=== PATIENT | male | born 1985 | race Caucasian/White ===

== ENCOUNTER 2018-06-30 08:43 | Emergency (ER) | payer SELFPAY | END 2018-06-30 09:43 | disposition home or self-care (01) | LOC: MADERS 08:43 | DX: M25.531 Pain in right wrist (principal); I10 Essential (primary) hypertension; Z87.891 Personal history of nicotine dependence | CPT/HCPCS: 99281 ==

== ENCOUNTER 2020-12-08 13:19 | Emergency (ER) | payer SELFPAY ==
[~2020-12-08 13:19] MED LIST: Sodium Chloride 0.9% 1,000 ML BAG ONE
[2020-12-08 13:58] LABS: Hemoglobin 15.9 g/dL (14.0-18.0); Mean Corpuscular HGB CONC 32.1 g/dL (32.0-36.0); Mean Corpuscular Hemoglobin 28.2 pg (27.0-31.0); Mean Corpuscular Volume 87.9 fL (78.0-98.0); Mean Platelet Volume 7.9 fL (7.4-10.4); Platelet Count 178 thou/uL (130-400); RBC Distribution Width 13.3 % (11.5-14.5); Red Blood Cell (RBC) Count 5.61 mill/uL (4.70-6.10); White Blood Cell (WBC) Count 8.9 thou/uL (4.8-10.8)
[2020-12-08 14:09] LABS: ALT (SGPT) 16 U/L (8-55); AST (SGOT) 25 U/L (5-34); Albumin 3.8 g/dL (3.5-5.0); Alkaline Phosphatase 84 U/L (40-110); Anion Gap 12 mmol/L (10-20); BUN (Urea Nitrogen) 17 mg/dL (8.9-20.6); Bilirubin, Total 1.3 mg/dL (0.2-1.2); CK (CPK) 139 U/L (30-200); Calc. Creatinine Clearance 0 mL/min (70-130); Carbon Dioxide 24 mmol/L (22-29); Chloride 103 mmol/L (98-107); Globulin 3.4 g/dL (2.4-3.5); Glucose 129 mg/dL (70-105); Potassium 3.8 mmol/L (3.5-5.1); Protein, Total 7.2 g/dL (6.0-8.3); Sodium 135 mmol/L (136-145)
[2020-12-08] MEDS ORDERED: Morphine 4 MG/ML VIAL ONE ×2 (14:26→16:18)
[2020-12-08] MEDS ORDERED: Morphine 2 MG/ML VIAL ONE (14:27)
[2020-12-08 14:29] LABS: Band 3 % (5-11); Eosinophils 3 % (0-10); Lymphocytes 8 % (21-51); MDiff Complete? YES; Monocytes 8 % (0-10); Neutrophil 77 % (42-75); Platelet Morphology Comment Appears Adequate; RBC Morphology Normal
[2020-12-08 14:33] LABS: Bilirubin Negative (Negative); Blood, Urine Trace (Negative); Clarity Clear (Clear); Glucose, Urine (Dipstick) Negative (Negative); Ketone, Urine Trace mg/dL (Negative); Leukocyte Negative (Negative); Nitrite Negative (Negative); Protein, Urine (Dipstick) 100 mg/dL (Neg-Trace); Specific Gravity, Urine 1.025 (1.005-1.030)
[2020-12-08 14:54] LABS: RBC/HPF 0-3 HPF (0-3); Squamous Epithelial 0-3 HPF (0-3); WBC/HPF 0-3 HPF (0-3)
[2020-12-08 14:55] LABS: Bacteria/HPF Rare-Few HPF (None Seen)
[2020-12-08] MEDS ORDERED: Ketorolac Tromethamine 30 MG/ML VIAL ONE (15:11)
[2020-12-08] MEDS ORDERED: Acetaminophen 325 MG TAB ONE (16:18)
[2020-12-08 17:06] LABS: SARS-CoV-2 NAA Rapid Test Not Detected (NotDetected)
[2020-12-08] MEDS ORDERED: Sodium Chloride 0.9% 100 ML ONE (19:06)
[2020-12-08] MEDS ORDERED: Sodium Chloride 0.9% 50 ML ONE (19:06)
[2020-12-08] MEDS ORDERED: cefTRIAXone\\ROCEPHIN 2 GM VIAL ONE (19:06)
[2020-12-08] MEDS ORDERED: Metoclopramide HCl 10 MG/2 ML VIAL ONE (19:06)
[2020-12-08] MEDS ORDERED: HYDROmorphone 0.5 MG/0.5 ML SYRINGE ONE (19:06)
[2020-12-08 19:28] LABS: INR-International Normal Ratio 1.1; Prothrombin Time 14.8 sec (12.0-14.7)
[2020-12-08] MEDS ORDERED: Sodium Chloride 0.9% 250 ML 500 ML ONE (20:01)
[2020-12-08] MEDS ORDERED: Ibuprofen 600 MG TAB ONE (20:17)
[2020-12-08 21:49] LABS: CSF Source CSF; Clarity Clear (Clear); Tube # 1; Tube # 4
== END 2020-12-08 22:34 | disposition home or self-care (01) ==
LOC: MADERS 13:19
DX: B34.9 Viral infection, unspecified (principal); Z20.822 Contact with and (suspected) exposure to COVID-19; E86.0 Dehydration; I10 Essential (primary) hypertension; F17.220 Nicotine dependence, chewing tobacco, uncomplicated
CPT/HCPCS: 0240U; 70450; 71045; 80053; 81003; 81015; 82550; 82945; 83605; 84157; 85025; 85610; 87070; 87205; 89051; 96365; 96366; 96367; 96375; 96376; J0696; J1170; J1885; J2270; J2765; J3370; J3490; J7050

== ENCOUNTER 2022-04-18 11:32 | Emergency (ER) | payer SELFPAY ==
[2022-04-18] MEDS ORDERED: Morphine 4 MG/ML VIAL ONE ×2 (11:45→12:01)
[2022-04-18] MEDS ORDERED: Aspirin Chewable 81 MG TAB ONE (11:45)
[2022-04-18] MEDS ORDERED: Heparin 25,000 units/D5W 500 ML ONE (11:51)
[2022-04-18] MEDS ORDERED: Heparin 10,000 UNITS/ 10 ML VIAL ONE (11:51)
[2022-04-18] MEDS ORDERED: Ondansetron PF 4 MG/2 ML Vial ONE (11:54)
[2022-04-18 11:56] LABS: #Basophils 0.1 thou/uL (0.0-0.2); #Eosinphils 0.3 thou/uL (0.0-0.7); #Lymphocytes 2.6 thou/uL (1.20-3.40); #Monocytes 0.8 thou/uL (0.11-0.59); #Neutrophils 4.3 thou/uL (1.40-6.50); %Basophils 1.5 % (0.0-1.0); %Eosinophils 3.5 % (0.0-10.0); %Lymphocytes 32.4 % (21.0-51.0); %Monocytes 9.9 % (0.0-10.0); %Neutrophils 52.7 % (42.0-75.0); Hemoglobin 16.5 g/dL (14.0-18.0); Mean Corpuscular HGB CONC 32.7 g/dL (32.0-36.0); Mean Corpuscular Hemoglobin 29.4 pg (27.0-31.0); Mean Corpuscular Volume 89.7 fl (78.0-98.0); Mean Platelet Volume 6.8 fL (7.4-10.4); Platelet Count 311 thou/uL (130-400); RBC Distribution Width 11.3 % (11.5-14.5); White Blood Cell (WBC) Count 8.1 thou/uL (4.8-10.8)
[2022-04-18] MEDS ORDERED: Tenecteplase 50 MG - STEMI KIT ONE (12:07)
[2022-04-18 12:08] LABS: ALT (SGPT) 20 U/L (8-55); AST (SGOT) 34 U/L (5-34); Albumin 4.6 g/dL (3.5-5.0); Alkaline Phosphatase 98 U/L (40-110); Anion Gap 17 mmol/L (10-20); BUN (Urea Nitrogen) 16 mg/dL (8.9-20.6); Bilirubin, Total 0.8 mg/dL (0.2-1.2); Calc. Creatinine Clearance 0 mL/min (70-130); Calcium 9.5 mg/dL (7.8-10.44); Carbon Dioxide 23 mmol/L (22-29); Chloride 104 mmol/L (98-107); Estimated GFR 84; Globulin 3.6 g/dL (2.4-3.5); Glucose 160 mg/dL (70-105); Magnesium 1.9 mg/dL (1.6-2.6); Potassium 3.7 mmol/L (3.5-5.1); Protein, Total 8.2 g/dL (6.0-8.3); Sodium 140 mmol/L (136-145)
[2022-04-18] MEDS ORDERED: Lorazepam 2 MG/ML VIAL ONE (12:16)
[2022-04-18 12:29] LABS: PTT 24.8 sec (22.9-36.1); Prothrombin Time 13.5 sec (12.0-14.7)
== END 2022-04-18 12:47 | disposition short-term general hospital (02) ==
LOC: MADERS 11:32
DX: I21.3 ST elevation (STEMI) myocardial infarction of unspecified site (principal)
CPT/HCPCS: 71045; 80053; 83735; 83880; 84484; 85025; 85610; 85730; 93005; 96365; 96374; 96375; 96376; J1644; J2060; J2270; J2405; J3101